=== PATIENT | female | born 1970 ===

== ENCOUNTER 2022-08-31 02:34 | Emergency (ER) | payer OTHER, SELFPAY ==
--- NOTE | ~2022-08-31 | XR_ITS ---
EXAMINATION: XR CHEST CLINICAL INFORMATION: Shortness of breath COMPARISON: None TECHNIQUE: Frontal view of the chest was obtained. FINDINGS: Normal symmetric lung volumes. No parenchymal consolidation. No pleural effusion. No pneumothorax. Cardiomediastinal silhouette and pulmonary vascularity are within normal limits. No acute osseous abnormalities. XR/XR chest 1V IMPRESSION: No acute findings
[2022-08-31 03:01] VITALS: BP 113/64; PULSE 92; RESP 20; TEMP 36.8; O2SAT 98; BMI 28.0
[2022-08-31 04:04] LABS: Influenza A PCR POSITIVE (Negative); Influenza B PCR NEGATIVE (Negative); Resp Syncy Virus RNA Qual PCR NEGATIVE (Negative); SARS COV2 PCR INHOUSE NEGATIVE (Negative)
--- NOTE | 2022-08-31 04:32 | ED_ITS ---
HPI - URI/Sore Throat General Chief Complaint: Upper Respiratory Symptoms Stated Complaint: Flu Like Time Seen by Provider: 08/31/22 03:41 Source: patient and family Mode of arrival: ambulatory Limitations: no limitations History of Present Illness HPI Narrative: 52-year-old female came in with symptoms of runny nose, sneezing, coughing, patient was exposed to a sick contact at work. Patient is coughing with shortness of breath. Patient's symptoms started 5-6 days ago. Related Data Previous Rx's Medication Instructions Recorded albuterol sulfate 90 mcg/actuation 1 inh inhalation QID PRN shortness 08/31/22 aerosol inhaler of breath or wheezing #8.5 grams prednisone 20 mg tablet 20 mg PO BID #10 tabs 08/31/22 Allergies Allergy/AdvReac Type Severity Reaction Status Date / Time No Known Allergies Allergy Verified 08/31/22 04:07 Review of Systems Review of Systems: All other systems are reviewed and are negative Constitutional: Reports as per HPI and Reports no additional constitutional complaints Eyes: Reports as per HPI and Reports no additional eye complaints Reports system reviewed and no additional complaints, except as documented Cardiovascular: Reports as per HPI and Reports no additional cardiovascular complaints Respiratory: Reports as per HPI and Reports no additional respiratory complaints Gastrointestinal: Reports as per HPI and Reports no additional gastrointestinal complaints Genitourinary: Reports no additional female genitourinary complaints Musculoskeletal: Reports no additional musculoskeletal complaints Skin/Breast: Reports system reviewed and no additional complaints, except as d ocu Psychiatric: Reports no additional psychiatric complaints Endocrine: Reports no additional endocrine complaints Hematologic/Lymphatic: Reports no additional hematologic/lymphatic complaints Allergic/Immunologic: Reports no additional allergic/immunologic complaints Reports system reviewed and no additional complaints, except as documented and Reports Abnormal speech present [facility] Social History Social History Advance Directives: No Advance Directives Information Provided: Yes Physical Exam Vital Signs: Vital Signs: Last Vital Signs Temp 98.2 F 08/31/22 03:01 Pulse 92 08/31/22 03:01 Resp 20 08/31/22 03:01 BP 113/64 08/31/22 03:01 Pulse Ox 98 08/31/22 03:01 O2 Del Method 08/31/22 03:01 BMI result Body Mass Index 28.0 Vital signs have been reviewed as appeared to be correct. Blood pressure normal. Heart rate normal. Respiration rate normal. Temperature normal. O xygen saturation normal. Appearance: Alert. Oriented X3. No acute distress. Head: Normal external exam. Normocephalic. Atraumatic. No Starr signs noted. No raccoon eyes noted Eyes: PERRLA. EOMI. Conjunctiva and sclera normal. Eyelids normal. ENT: TM's Normal. Pharynx normal. Uvula midline. Moist mucous membranes. No trismus noted. No drooling noted. No muffled voice noted. Neck: Normal inspection. Neck supple. FROM. No adenopathy. Thyroid Normal. No meningeal signs. No neck mass noted. CVS: Normal heart rate and rhythm. Heart sound normal. No murmurs noted. Pulses normal throughout. Respiratory: No respiratory distress. Painless inspiration. Breath sounds normal. Diffuse expiratory wheezing with prolonged expiration, Chest nontender. No accessory muscle usage noted or decreased air movement noted. Abdomen: Soft and nontender. Bowel sounds normal in all 4 quadrants. No distention noted. No organomegaly noted. No visible injury noted. Back: No CVA tenderness. Full range of motion noted. Skin: Skin warm and dry. Normal skin color. Normal skin turgor. No rashes/lesions/lacerations noted. Extremities: No lower extremity edema. Extremities exhibit normal range of motion. Extremities nontender. Neuro: Oriented X 3. Cranial nerve exam: II-XII are grossly intact No motor deficit. No sensory deficit. Reflexes normal. Course Course Course Narrative: 52-year-old female positive for influenza A, physical exam is also consistent with acute bronchitis. Will start the patient on bronchodilator/prednisone. Symptoms started for 5-6 days patient will not benefit from Tamiflu at this point. Medical Decision Making Differential Diagnosis Differential Diagnoses: The differential diagnosis associated with the presentation includes (RSV/COVID-19 infection/influenza/bronchitis/pneumonia.) Lab Data MDM Lab Attestation statement: I reviewed the patient's lab results. Labs: Lab Results 08/31/22 Range/Units 03:20 Influenza Type A (PCR) POSITIVE A (Negative) Influenza Type B (PCR) NEGATIVE (Negative) RSV RNA Qual (PCR) NEGATIVE (Negative) SARS-CoV-2 RNA (RT-PCR) NEGATIVE (Negative) Independent Interpretation I performed an independent interpretation of an: Plain X-Ray (Chest: No acute intrathoracic pathology.) Radiology Impression Discussion of test interpretation with radiology: I have reviewed the radiologist's reading. Discharge Plan Discharge Clinical Impression: Influenza, Bronchitis Patient Disposition: Home, Self-Care Instructions: Influenza (ED) Prescriptions: New prednisone 20 mg tablet 20 mg PO BID Qty: 10 0RF albuterol sulfate 90 mcg/actuation HFA aerosol inhaler 1 inh inhalation QID PRN (Reason: shortness of breath or wheezing) Qty: 8.5 0RF Referrals: Alma Delia Lindsey MD [Primary Care Provider] - Stand Alone Forms: Work/School Release
== END 2022-08-31 04:54 | disposition home or self-care (01) ==
PROVIDERS: Emergency Provider Emergency Medicine; PCP Internal Medicine
DX: J10.1 Influenza due to other identified influenza virus with other respiratory manifestations (principal); J40 Bronchitis, not specified as acute or chronic; Z20.822 Contact with and (suspected) exposure to COVID-19
CPT/HCPCS: 0241U; 71045; 99282; 99283

== ENCOUNTER 2022-09-08 03:38 | Emergency (ER) | payer SELFPAY ==
--- NOTE | ~2022-09-08 | XR_ITS ---
EXAMINATION: XR CHEST CLINICAL INFORMATION: Shortness breath COMPARISON: 08/31/2012 2 TECHNIQUE: Frontal view of the chest was obtained. FINDINGS: Normal symmetric lung volumes. No parenchymal consolidation. No pleural effusion. No pneumothorax. Cardiomediastinal silhouette and pulmonary vascularity are within normal limits. No acute osseous abnormalities. XR/XR chest 1V IMPRESSION: No acute findings.
[2022-09-08 03:43] VITALS: BP 115/52; PULSE 76; RESP 20; TEMP 36.4; O2SAT 96; BMI 28.0
--- NOTE | 2022-09-08 04:28 | ED.ASTHMA ---
HPI - Asthma General Chief Complaint: Asthma Stated Complaint: asthma Time Seen by Provider: 09/08/22 04:28 Source: patient Mode of arrival: ambulatory Limitations: no limitations History of Present Illness HPI Narrative: Patient with history of asthma just had flu last week treated with Tamiflu comes here for increased shortness of breath cough congestion using inhaler without any relief saturating 96% at room air on arrival patient used to have mild asthma off and on since flu having more episodes with wheezing and cough Related Data Previous Rx's Medication Instructions Recorded albuterol sulfate 90 mcg/actuation 1 inh inhalation QID PRN shortness 08/31/22 aerosol inhaler of breath or wheezing #8.5 grams prednisone 20 mg tablet 20 mg PO BID #10 tabs 08/31/22 albuterol sulfate 90 mcg/actuation 2 puff inhalation Q4-6H PRN 09/08/22 aerosol inhaler (ProAir HFA) shortness of breath or wheezing #8.5 grams azithromycin 250 mg tablet 250 mg PO DAILY 4 days #4 tabs 09/08/22 (Zithromax Z-Edi) benzonatate 200 mg capsule 200 mg PO TID PRN cough #30 caps 09/08/22 prednisone 20 mg tablet 40 mg PO DAILY #10 tabs 09/08/22 Allergies Allergy/AdvReac Type Severity Reaction Status Date / Time No Known Allergies Allergy Verified 09/08/22 03:47 Review of Systems Review of Systems: Yes all other systems are reviewed and are negative [facility] Social History Social History Smoked in Last 30 Days: No Use of substances other than those prescribed or required for medical reasons: No Advance Directives: No Advance Directives Information Provided: Yes Patient : No Physical Exam Vital Signs: Vital Signs: Last Vital Signs Temp 97.5 F 09/08/22 03:43 Pulse 76 09/08/22 03:43 Resp 20 09/08/22 03:43 BP 115/52 L 09/08/22 03:43 Pulse Ox 96 09/08/22 03:43 O2 Del Method 09/08/22 03:43 BMI result Body Mass Index 28.0 Appearance: Alert. Oriented X3. No acute distress. Eyes: No pallor or icterus ENT: Pharynx normal. Oral Mucosa moist Neck: Normal inspection. Neck supple. CVS: Normal heart rate and rhythm. Pulses normal. Respiratory: No respiratory distress. Equal air entry bilateral, bilateral wheezing Abdomen: Soft and nontender. Bowel sounds are present, no mass palpable, no CVA tenderness Skin: Skin warm and dry. Normal skin color. Normal skin turgor. Extremities: No lower extremity edema. No calf tenderness Neuro: Oriented X 3. No motor deficit. No sensory deficit.No cerebellar signs , cranial nerves II-XII intact Const: Other: Appearance: Alert. Oriented X3. No acute distress. Eyes: PERRLA, No Nystagmus ENT: Pharynx normal. Oral Mucosa moist Neck: Normal inspection. Neck supple. CVS: Normal heart rate and rhythm. Pulses normal. Respiratory: No respiratory distress. Equal air entry bilateral, prolonged expiration with rhonchi Abdomen: Soft and nontender. Bowel sounds are present, no mass palpable, no CVA tenderness Skin: Skin warm and dry. Normal skin color. Normal skin turgor. Extremities: No lower extremity edema. No calf tenderness Neuro: Oriented X 3. No motor deficit. Medications Administered Discontinued Medications Generic Name Dose Route Start Last Admin Trade Name Freq PRN Reason Stop Dose Admin Albuterol Sulfate 2.5 mg/ 0 mg 09/08/22 04:38 09/08/22 04:48 Ipratropium [place] 0.5 mg INHALE 09/08/22 04:39 1 each ONCE ONE Administration Dexamethasone 10 mg 09/08/22 04:38 09/08/22 04:50 Dexamethasone 2 Mg Tablet PO 09/08/22 04:39 10 mg ONCE ONE Administration Guaifenesin/Codeine Phosphate 10 ml 09/08/22 04:38 09/08/22 04:50 Guaifen/Codeine Sf 200/20/10ml 10 Ml Liquid PO 09/08/22 04:39 10 ml ONCE ONE Administration Medical Decision Making Medical Decision Making MDM Narrative: Patient with asthma discharge patient home on prednisone, Zithromax, albuterol inhaler Discharge Plan Discharge Clinical Impression: Acute asthmatic bronchitis Patient Disposition: Home, Self-Care Instructions: Acute Bronchitis (ED) Additional Instructions: Continue using her inhaler, cough drops, antibiotic and prednisone Prescriptions: New benzonatate 200 mg capsule 200 mg PO TID PRN (Reason: cough) Qty: 30 0RF prednisone 20 mg tablet 40 mg PO DAILY Qty: 10 0RF albuterol sulfate [ProAir HFA] 90 mcg/actuation HFA aerosol inhaler 2 puff inhalation Q4-6H PRN (Reason: shortness of breath or wheezing) Qty: 8.5 0RF azithromycin [Zithromax Z-Edi] 250 mg tablet 250 mg PO DAILY 4 Days Qty: 4 0RF Rx Instructions: start on day 2 of therapy No Action prednisone 20 mg tablet 20 mg PO BID Qty: 10 0RF albuterol sulfate 90 mcg/actuation HFA aerosol inhaler 1 inh inhalation QID PRN (Reason: shortness of breath or wheezing) Qty: 8.5 0RF
[2022-09-08] MEDS: dexAMETHasone 2 MG TABLET 10 MG PO (04:50)
[2022-09-08] MEDS: guaiFEN/Codeine SF 200/20/10ML 10 ML LIQUID PO (04:50)
--- NOTE | 2022-09-08 05:07 | PC.NURSE ---
this rn medicated pt according to mar. pt partner at bedside at this time
[2022-09-08] MEDS: Albuterol Sulfate 90 MCG 8 GM INHALER 2 PUFF INHALE (05:57)
[2022-09-08] MEDS: Benzonatate 100 MG CAPSULE 200 MG PO (06:00)
[2022-09-08] MEDS: Azithromycin 500 MG TABLET PO (06:01)
[2022-09-08 06:07] VITALS: BP 106/64; PULSE 82; RESP 14; TEMP 36.6; O2SAT 96
--- NOTE | 2022-09-08 06:10 | PC.NURSE ---
pt ambulatory at discharge. pt medicated according to mar. pt partner at bedside at discharge. pt provided with discharge packet at discharge. pt verbalized understanding of discharge plan
== END 2022-09-08 06:12 | disposition home or self-care (01) ==
PROVIDERS: Emergency Provider Internal Medicine
DX: J20.9 Acute bronchitis, unspecified (principal)
CPT/HCPCS: 71045; 99284; J8540

== ENCOUNTER 2023-04-19 15:33 | Emergency (ER) | payer OTHER, SELFPAY ==
--- NOTE | ~2023-04-19 | XR_ITS ---
EXAMINATION: XR CHEST 2 VIEW CLINICAL INFORMATION: Cough and shortness of breath COMPARISON: 09/08/2022 TECHNIQUE: PA and lateral views of the chest obtained. FINDINGS: The lungs are clear. There are no pleural effusions. The cardiomediastinal silhouette is normal. XR/XR chest 2V IMPRESSION: No acute cardiopulmonary disease.
[2023-04-19 16:12] VITALS: BP 109/70; PULSE 76; RESP 17; TEMP 36.5; O2SAT 97; BMI 28.4
--- NOTE | 2023-04-19 16:13 | ED.GENADULT ---
HPI - General Adult General Chief complaint: General Medical Stated complaint: possible chickenpox/ SOB Time Seen by Provider: 04/19/23 19:17 Source: patient, RN notes reviewed and old records reviewed Mode of arrival: ambulatory Limitations: no limitations History of Present Illness HPI narrative: 52-year-old female presents for evaluation of an itchy rash to most of her body. Patient reports that she initially fell on well and had a fever 3 or 4 days ago She then developed a rash that she 1st noticed on her left leg The rash has not spread to most her entire body including neck, both arms and both legs She describes the rash is very itchy She went to her primary doctor yesterday who tested her for chickenpox but was told the report would not be back until Sunday The patient also had some associated shortness of breath She has a history of asthma Patient reports that she was born in [place] and is adopted so does not know her medical history She was told that she had chickenpox as a child Related Data Previous Rx's Medication Instructions Recorded albuterol sulfate 90 mcg/actuation 1 inh inhalation QID PRN shortness 08/31/22 aerosol inhaler of breath or wheezing #8.5 grams prednisone 20 mg tablet 20 mg PO BID #10 tabs 08/31/22 albuterol sulfate 90 mcg/actuation 2 puff inhalation Q4-6H PRN 09/08/22 aerosol inhaler (ProAir HFA) shortness of breath or wheezing #8.5 grams azithromycin 250 mg tablet 250 mg PO DAILY 4 days #4 tabs 09/08/22 (Zithromax Z-Edi) benzonatate 200 mg capsule 200 mg PO TID PRN cough #30 caps 09/08/22 prednisone 20 mg tablet 40 mg PO DAILY #10 tabs 09/08/22 Allergies Allergy/AdvReac Type Severity Reaction Status Date / Time No Known Allergies Allergy Verified 09/08/22 03:47 Review of Systems Constitutional: Constitutional: Denies chills, Denies fever(s) and Reports malaise Cardiovascular: Cardiovascular: Reports dyspnea Respiratory: Respiratory: Denies cough and Reports dyspnea Gastrointestinal: Gastrointestinal: Denies abdominal pain, Denies nausea and Denies vomiting Musculoskeletal: Musculoskeletal: Denies back pain Integumentary/Breasts: Skin/Breast: Reports lesions and Reports rash PMFSH Social History Social History Advance Directives: No Advance Directives Information Provided: No Physical Exam ED Vital Signs: Vital Signs - 24 hr 04/19/23 16:12 04/19/23 18:30 Temperature 97.7 F Pulse Rate 76 67 Respiratory Rate 17 18 Blood Pressure 109/70 Pulse Oximetry 97 Oxygen Delivery Method Room Air BMI result Body Mass Index 28.4 Const General: healthy appearing, comfortable, no acute distress, alert and awake Nutritional Appearance: well nourished Orientation/consciousness: patient oriented x3 HENMT Head: Yes normocephalic and Yes atraumatic Eyes Eyelids: Yes eyelids normal Conjunctivae: conjunctivae normal Sclerae: sclerae normal Corneas: corneas normal Pupils: Equal, round and reactive pupils present EOM: EOMs intact bilaterally Neck Neck: Yes full ROM Resp Other: Patient did receive a breathing treatment prior to my evaluation Effort & Inspection: normal respiratory effort, able to speak in complete sentences, no audible wheezes and not labored Auscultation: clear to auscultation bilaterally Cardio Rate: regular rate Rhythm: regular rhythm GI Inspection: No distended Palpation (GI): Soft to palpation, not firm, nontender, no guarding and not rigid Skin Other: Patient has diffuse erythematous maculopapular rash with occasional vesicles. Some of the lesions are crusted over. There is limited involvement of the trunk Neuro General: patient oriented x3 Cranial nerves: Yes Equal, round and reactive pupils present and Yes Bilaterally intact EOM present Cognition (Neuro): normal cognition Extrem Other: Moving all extremities well without any obvious deformities Course Course Course Narrative: RME: 52yo F w/no sig PMHx c/o NAJERA, SOB, cough x last night, & pruritic rash to b/l UE and LE x2-3 days. Was seen at PCP's office yesterday and had labs and was told she might have Chickenpox. Patient UTD on vaccinations and admits had the chickenpox when she was a child +papular rash to b/l UE and LE, no vesicles or ulcers. ?folliculitis, No palm or sole involvement Viral testing & CXR ordered Full HPI, ROS and PE to be performed by primary ED provider. Medications Administered Discontinued Medications Generic Name Dose Route Start Last Admin Trade Name Freq PRN Reason Stop Dose Admin Albuterol Sulfate 4 puff 08/17/23 18:22 04/19/23 18:30 Albuterol Sulfate 90 Mcg 8 Gm Inhaler INHALE 04/19/23 18:23 4 puff ONCE ONE Administration Medical Decision Making Medical Decision Making [facility] Narrative: Patient has a rash that is consistent with chickenpox/varicella zoster. Given that she was adopted and does not know her medical history is unclear will her vaccination status is or if she was exposed as a child. The patient had a test performed yesterday by her PCP but just does not know the results. She will be treated symptomatically and will follow up with her PCP for results. Her chest x-ray was clear and she test negative for COVID-19 Differential Diagnosis Differential Diagnoses: The differential diagnosis associated with the presentation includes Chickenpox Varicella zoster Viral syndrome Viral exanthem Acute asthma exacerbation Lab Data Labs: Lab Results 04/19/23 04/19/23 Range/Units 16:29 16:29 COVID-19 (BALJINDER) Negative (Negative) COVID-19 Clin Com See Note Influenza Type A (YVES) Negative (Negative) Influenza Type B (YVES) Negative (Negative) Influenza A & B Note See Note Independent Interpretation I performed an independent interpretation of an: Plain X-Ray (Clear lungs) Radiology Impression Discussion of test interpretation with radiology: I have reviewed the radiologist's reading. (No acute cardiopulmonary disease) Discharge Plan Discharge Clinical Impression: Acute maculopapular rash Patient Disposition: Home, Self-Care Instructions: Chickenpox (ED) Additional Instructions: Your rash is consistent with chickenpox You should remain and self isolation at least until Sunday when he can find out the results of her blood test You may use Benadryl as needed for itching and rash Return for new or worsening symptoms Your chest x-ray was clear and you tested negative for COVID-19 Prescriptions: No Action prednisone 20 mg tablet 20 mg PO BID Qty: 10 0RF albuterol sulfate 90 mcg/actuation HFA aerosol inhaler 1 inh inhalation QID PRN (Reason: shortness of breath or wheezing) Qty: 8.5 0RF benzonatate 200 mg capsule 200 mg PO TID PRN (Reason: cough) Qty: 30 0RF prednisone 20 mg tablet 40 mg PO DAILY Qty: 10 0RF albuterol sulfate [ProAir HFA] 90 mcg/actuation HFA aerosol inhaler 2 puff inhalation Q4-6H PRN (Reason: shortness of breath or wheezing) Qty: 8.5 0RF azithromycin [Zithromax Z-Edi] 250 mg tablet 250 mg PO DAILY 4 Days Qty: 4 0RF Rx Instructions: start on day 2 of therapy Stand Alone Forms: Work/School Release
[2023-04-19 17:09] LABS: IDNOW Serial# 9DB6401D; Influenza A Negative (Negative); Influenza B2 Negative (Negative)
[2023-04-19 17:10] LABS: COVID-19 Test Negative (Negative); IDNOW Serial# BCCEAD1C
[2023-04-19 18:30] VITALS: PULSE 67; RESP 18; O2SAT 97
[2023-04-19] MEDS: Albuterol Sulfate 90 MCG 8 GM INHALER 4 PUFF INHALE (18:30)
== END 2023-04-19 19:44 | disposition home or self-care (01) ==
PROVIDERS: Physician Assistant; Emergency Provider Emergency Medicine
DX: R21 Rash and other nonspecific skin eruption (principal); R06.02 Shortness of breath; Z20.822 Contact with and (suspected) exposure to COVID-19
CPT/HCPCS: 71046; 87502; 87635; 94640; 99283; 99284

== ENCOUNTER 2024-10-31 07:14 | Emergency (ER) | payer OTHER, SELFPAY ==
--- NOTE | ~2024-10-31 | XR_ITS ---
EXAMINATION: XR CHEST CLINICAL INFORMATION: cough COMPARISON: April 19, 2023. TECHNIQUE: Frontal view of the chest was obtained. FINDINGS: Pulmonary reticular pattern. No consolidation, pleural effusion or pneumothorax. Cardiomediastinal silhouette size is normal. Mild multilevel thoracic spondylosis. XR/XR chest 1V IMPRESSION: Acute small airway inflammatory disease should be considered in the correct clinical settings. Electronically signed by: Mart Polo MD 10/31/2024 09:10 AM OLIVIA
--- NOTE | 2024-10-31 07:17 | ECG_ITS ---
Test Reason : chest pain Blood Pressure : */* mmHG Vent. Rate : 86 BPM Atrial Rate : 86 BPM P-R Int : 138 ms QRS Dur : 72 ms QT Int : 374 ms P-R-T Axes : 62 71 67 degrees QTcB Int : 447 ms Normal sinus rhythm Normal ECG No previous ECGs available Referred By: Generic ED Physician Electronically Signed By: Andres Head
[2024-10-31 07:24] VITALS: BP 105/64; PULSE 86; RESP 20; TEMP 36.8; O2SAT 97; BMI 26.8
--- NOTE | 2024-10-31 09:23 | ED_ITS ---
HPI - General Adult General Chief complaint: Upper Respiratory Symptoms Stated complaint: chest pain headache Time Seen by Provider: 10/31/24 09:22 Source: patient, RN notes reviewed and old records reviewed Mode of arrival: ambulatory Limitations: no limitations History of Present Illness ED Provider: Alexy VICTORIA narrative: Patient is a 54-year-old female with history of asthma presenting to the emergency department with complaint of headache, congestion, cough, body aches for the past 3 days. States she has been using her inhalers at home with little change in symptoms. Denies any known sick contacts. Reports subjective fevers/chills. Has been using Tylenol and ibuprofen with little improvement in symptoms. complaint: shortness of breath, body aches Onset (ago): day(s) Related Data Previous Rx's ?Medication ?Instructions ?Recorded albuterol sulfate 90 mcg/actuation 1 inh inhalation QID PRN shortness 08/31/22 aerosol inhaler of breath or wheezing #8.5 grams prednisone 20 mg tablet 20 mg PO BID #10 tabs 08/31/22 albuterol sulfate 90 mcg/actuation 2 puff inhalation Q4-6H PRN 09/08/22 aerosol inhaler (ProAir HFA) shortness of breath or wheezing #8.5 grams azithromycin 250 mg tablet 250 mg PO DAILY 4 days #4 tabs 09/08/22 (Zithromax Z-Edi) benzonatate 200 mg capsule 200 mg PO TID PRN cough #30 caps 09/08/22 prednisone 20 mg tablet 40 mg (2 x 20 mg) PO DAILY #10 tabs 09/08/22 amoxicillin 875 mg tablet 875 mg PO BID #14 tabs 10/31/24 prednisone 20 mg tablet 40 mg (2 x 20 mg) PO DAILY #10 tabs 10/31/24 Allergies Allergy/AdvReac Type Severity Reaction Status Date / Time No Known Allergies Allergy Verified 10/31/24 07:27 Review of Systems Review of Systems: As per HPI Yes all other systems are reviewed and are negative Constitutional: Constitutional: Reports as per HPI [facility] Social History Social History Advance Directives: No Advance Directives Information Provided: Yes Do you have a plan to hurt others: No Plan Physical Exam ED Vital Signs: Vital Signs - 24 hr 10/31/24 07:24 10/31/24 09:58 10/31/24 10:03 Temperature 98.3 F Pulse Rate 86 84 Respiratory Rate 20 16 Blood Pressure 105/64 Pulse Oximetry 97 96 Oxygen Delivery Method Room Air Room Air BMI result Body Mass Index 26.8 Vital signs have been reviewed and appear to be correct. Blood pressure normal. Heart rate normal. Respiratory rate normal. Temperature normal. Oxygen saturation normal. Const General: cooperative, healthy appearing and no acute distress Orientation/consciousness: oriented to person, oriented to place, oriented to time and patient oriented x3 Limitations: no limitations HENMT Head: Yes normocephalic and Yes atraumatic Ears: external ears normal, mastoids normal, no periauricular adenopathy and TM abnormal wth effusion purulent on the left and erythematous on the left General nose exam: Normal external nose present Face and sinus: Yes face symmetric Mouth: oropharynx normal and moist mucous membranes Throat: Yes uvula midline Eyes Pupils: Equal, round and reactive pupils present Neck Neck: Yes normal visual inspection and Yes supple Resp Effort & Inspection: normal respiratory effort and able to speak in complete sentences Auscultation: wheezes inspiratory wheezes Cardio Rate: regular rate Rhythm: regular rhythm Heart sounds: S1 normal heart sound present and S2 normal heart sound present GI Palpation (GI): Soft to palpation and nontender Auscultation: normoactive bowel sounds General: Yes no CVA tenderness Back/Spine/Pelvis Back: no CVA tenderness Skin General skin exam: elasticity normal and turgor normal Neuro General: oriented to person, oriented to place, oriented to time, patient oriented x3, moves all extremities, no focal motor deficits and CN's II-XI in tact bilaterally Cranial nerves: Yes Equal, round and reactive pupils present Cognition (Neuro): normal cognition Extrem General: Yes full ROM, Yes no pedal edema and Yes no calf tenderness Psych Mental Status: mental status grossly normal Affect: normal affect Thought process: Normal thought process present Medications Administered Discontinued Medications Generic Name Dose Route Start Last Admin Trade Name Freq PRN Reason Stop Dose Admin Albuterol Sulfate 2.5 mg/ 0 mg 10/31/24 09:54 10/31/24 09:58 Albuterol/Ipratropium 3 ml INHALE 10/31/24 09:55 5 dose ONCE ONE Administration Methylprednisolone Sodium Succinate 60 mg 10/31/24 09:37 10/31/24 09:51 Methylprednisolone Sod Succ 125 Mg/2 Ml Vial IVPUSH 10/31/24 09:38 60 mg ONCE ONE Administration Medical Decision Making Medical Decision Making [facility] Narrative: Patient is a 54-year-old female with history of asthma presenting to the emergency department with complaint of headache, congestion, cough, body aches for the past 3 days. On exam patient is awake, A+Ox3, VS WNL, afebrile, normal neurological exam without focal deficits, physical exam findings as above. Given reported symptoms and physical exam findings, initial differential includes but is not limited to asthma exacerbation, viral illness, covid, flu, rsv, bronchitis, pneumonia. Viral serology positive for influenza B. Physical exam findings consistent with AOM left ear. Will treat with amoxicillin. X-ray notable for small airway inflammation consistent with viral illness. My interpretation is in agreement with the radiologist's interpretation. Feel patient is stable for discharge home. Will send course of prednisone. Follow up with PCP as needed. Patient is outside treatment window for Tamiflu. Return precautions discussed. Patient verbalized understanding of and agreement with plan. Differential Diagnosis Differential Diagnoses: The differential diagnosis associated with the presentation includes As per [facility] Admission/Observation Consideration of admission/observation: Escalation of care including admission/observation considered Patient would have been admitted to the hospital had their work up had any findings where hospital admission was appropriate and their clinical presentation warranted hospital admission. Lab Data [facility] [place] Lab Attestation statement: I reviewed the patient's lab results. As per [facility] Labs: Lab Results 10/31/24 Range/Units 08:18 Influenza Type A (PCR) NEGATIVE (Negative) Influenza Type B (PCR) POSITIVE A (Negative) RSV RNA Qual (PCR) NEGATIVE (Negative) SARS-CoV-2 RNA (RT-PCR) NEGATIVE (Negative) Independent Interpretation I performed an independent interpretation of an: Plain X-Ray Interpretation: X-ray notable for small airway inflammation consistent with viral illness. Radiology Impression Discussion of test interpretation with radiology: I have reviewed the radiologist's reading. Radiologist Impression: FINDINGS: Pulmonary reticular pattern. No consolidation, pleural effusion or pneumothorax. Cardiomediastinal silhouette size is normal. Mild multilevel thoracic spondylosis. XR/XR chest 1V IMPRESSION: Acute small airway inflammatory disease should be considered in the correct clinical settings. External Record Review External record reviewed: Inpatient record, Office record and Outpatient record Prescription Management I considered prescription management with: Antibiotic and Other Discharge Plan Discharge Clinical Impression: Influenza, Otitis media Patient Disposition: Home, Self-Care Instructions: Influenza (DC), Flu Shot (Vaccine) for Adults (ED), Ear Infection (ED) Additional Instructions: You were evaluated in the emergency department today for cough, body aches, and ear pain. Your flu test was positive. You should isolate at home for another 3 days and continue to wear mask or symptomatic after that. Your symptoms should resolve over time with rest and fluids. You are being prescribed a course of steroids to decrease inflammation. You can take 650 mg Tylenol or 600 mg ibuprofen every 6 hours as needed for fever or pain. You were also noted to have an ear infection in your left ear. You are being prescribed an antibiotic to treat the ear infection, complete the full course as prescribed. Please follow-up with your primary care provider for any ongoing symptoms. Return to the emergency department if you develop worsening pain, fever not controlled with Tylenol and ibuprofen, chest pain, dizziness or lightheadedness, or any other concerning symptoms. Prescriptions: New amoxicillin 875 mg tablet 875 mg PO BID Qty: 14 0RF prednisone 20 mg tablet 40 mg PO DAILY Qty: 10 0RF No Action prednisone 20 mg tablet 20 mg PO BID Qty: 10 0RF albuterol sulfate 90 mcg/actuation HFA aerosol inhaler 1 inh inhalation QID PRN (Reason: shortness of breath or wheezing) Qty: 8.5 0RF benzonatate 200 mg capsule 200 mg PO TID PRN (Reason: cough) Qty: 30 0RF prednisone 20 mg tablet 40 mg PO DAILY Qty: 10 0RF albuterol sulfate [ProAir HFA] 90 mcg/actuation HFA aerosol inhaler 2 puff inhalation Q4-6H PRN (Reason: shortness of breath or wheezing) Qty: 8.5 0RF azithromycin [Zithromax Z-Edi] 250 mg tablet 250 mg PO DAILY 4 Days Qty: 4 0RF Rx Instructions: start on day 2 of therapy Stand Alone Forms: Work/School Release Print Language: Armenian
--- OUTSIDE RECORDS SUMMARY | 2024-10-31 09:37 | XMS_ITS | Encounter Summary ---
Author Organization [facility] Address [address] [place] [address] Care Team Providers Care Milling Planer Operator Name Role Phone Alma Delia Lindsey MD Primary Care Provider [phone] Reason for Referral * Consultation (Routine) - Pending Review Specialty Diagnoses / Procedures Referred By Nara romano Referred To Contact Physical Therapy Diagnoses Acute midline low back pain without sciatica Alma Delia Lindsey MD [address] [place] [id number] Phone: tel: fax: Referral ID Status Reason Start Date Expiration Date Visits Requested Visits Authorized [id number] Pending Review Specialty Services Required 10/20/2024 10/20/2025 1 1 Reason for Visit * Reason Comments Back Pain Encounter Details Date Type Department Care Team (Late st Contact Info) Description 10/20/2024 1:15 PM EST Office Visit Adult Medicine [address] [phone] Alma Delia Lindsey MD [address] [place] [phone] Mild intermittent asthma without complication (Primary Dx); Acute midline low back pain without sciatica Social History Tobacco Use Types Packs/Day Years Used Date Smoking Tobacco: Never Smokeless Tobacco: Never Tobacco Cessation:Counseling Given: Not Answered Alcohol Use Standard Drinks/Week Comments No 0 (1 standard drink = 0.6 oz pur e alcohol) Comments No Sex and Gender Information Value Date Recorded Sex Assigned at Not on file Legal Sex Female 6:48 PM EST Gender Identity Not on file Sexual Orientation Not on file documented as of this encounter Last Filed Vital Signs Vital Sign Reading Time Taken Comments Blood Pressure 88/55 10/20/2024 1:09 PM EST Pulse 72 10/20/2024 1:09 PM EST Temperature 36.6 ??C (97.9 ??F) 10/20/2024 1:09 PM ES T Respiratory Rate 13 10/20/2024 1:09 PM EST Oxygen Saturation - - Inhaled Oxygen Concentration - - Weight 60.4 kg (133 lb 1.6 oz) 10/20/2024 1:09 P M EST Height 149.9 cm (4' 11 ) 10/20/2024 1:09 PM EST Body Mass Index 26.88 10/20/2024 1:09 PM EST documented in this encounter Ordered Prescriptions Prescription Sig Dispense Quantity Refills Last Filled Start Date End Date albuterol HFA (PROAIR HFA ; PROVENTIL HFA ; VENTOLIN HFA) 90 mcg/actuation inhaler Inhale 2 Puffs into the lungs every 6 hours as needed for Cough, Wheezing or Shortness of Breath. 8.5 g 1 10/20/2024 predniSONE (DELTASONE) 20 mg tablet Take 3 tabs (60mg) daily for 5 days, then take 2 tabs (40mg) daily for 2 days, then take 1 tab (20mg) daily for 2 days. 21 tablet 10/20/2024 documented in this encounter Progress Notes * Niru Mandel MA - 10/20/2024 1:15 PM EST Depression Screening Will the patient answer the depression risk questions?: Yes Over the last 2 weeks, how often have you been bothered by little interest or pleasure in doing things?: Not at all Over the last 2 weeks, how often have you been bothered by feeling down, depressed, or hopeless?: Not at all Depression Risk: 0 * Alma Delia Lindsey MD - 10/20/2024 1:15 PM EST Chief Complaint: Chief Complaint Patient presents with Back Pain IDENTIFIER: Lily Grubbs is a 54 y.o. old female HPI She states that she has had low back pain dating back a number of years. It has been worse over thelast 2 days with midline low back pain. She has tried muscle relaxers in the past that made her sleepy but did not help her discomfort. She has had x-rays previously showing mild spondylosis. There is no change in urine or bowel habits, there is no radiation of discomfort, no weakness, numbness or p aresthesias in the extremities. She does have asthma and has been continuing as well on albuterol and Flovent inhaler. ROS: General: No malaise, significant weight loss or fever Respiratory: No cough, wheezing or shortness of breath except as noted Cardiovascular: No chest pain, palpitations, no orthopnea Musc as noted Past Medical History: Patient Active Problem List Diagnosis Date Noted Psoriasis 07/30/2018 Herpes simplex labialis 09/05/2016 Atypical ductal hyperplasia of left breast 08/25/2015 Elevated liver enzymes 11/01/2012 Vitamin D deficiency 11/01/2012 Hypothyroidism 03/01/2012 Mild intermittent asthma 03/01/2012 Surgical History: Past Surgical History: Procedure Laterality Date BREAST BIOPSY Left 07/2015 pre cancerous Family History: Family History Adopted: Yes Social History: Social History Tobacco Use Smoking status: Never Smokeless tobacco: Never Substance Use Topics Alcohol use: No Allergies: Fruit extracts Medications: Outpatient Medications Marked as Taking for the 10/20/24 encounter (Office Visit) with Alma Delia Lindsey MD Medication Sig Dispense Refill albuterol HFA (PROAIR HFA ; PROVENTIL HFA ; VENTOLIN HFA) 90 mcg/actuation inhaler Inhale 2 Puffs into the lungs every 6 hours as needed for Cough, Wheezing or Shortness of Breath. 8.5 g 1 calcipotriene (DOVONEX) 0.005 % cream Apply to affected area BID clobetasoL (TEMOVATE) 0.05 % cream Apply topically 2 times daily. fluocinolone (SYNALAR) 0.01 % external solution Apply to affected area BID x 2 weeks fluticasone HFA (FLOVENT HFA) 110 mcg/actuation inhaler Inhale 1 Puff into the lungs 2 times daily. norethindrone (LURDES,DANYELL,SCHUYLER,MICRONOR) 0.35 mg tablet Take 1 Tablet by mouth daily. triamcinolone (KENALOG) 0.1 % ointment APPLY A THIN LAYER TO THE AFFECTED AREA NIGHTLY X2 WEEKS, THEN 2-3X/WEEK NEEDED [DISCONTINUED] albuterol HFA (PROAIR HFA ; PROVENTIL HFA ; VENTOLIN HFA) 90 mcg/actuation inhaler Inhale 2 Puffs into the lungs every 6 hours as needed for Cough, Wheezing or Shortness of Breath. [DISCONTINUED] azithromycin (ZITHROMAX) 250 mg tablet 2 today then 1 daily [DISCONTINUED] predniSONE (DELTASONE) 20 mg tablet Take 3 tablets by mouth on day 1-2, take 2 tablets by mouth on day 3-4, take 1 tablet by mouth on days 5-6. Take with food in the morning. Medication Discontinued/Reordered: Medications Discontinued During This Encounter Medication Reason azithromycin (ZITHROMAX) 250 mg tablet predniSONE (DELTASONE) 20 mg tablet albuterol HFA (PROAIR HFA ; PROVENTIL HFA ; VENTOLIN HFA) 90 mcg/actuation inhaler Reorder Vitals: Blood pressure 88/55, pulse 72, temperature 36.6 ??C (97.9 ??F), temperature source Temporal, resp.rate 13, height 1.499 m (59 ), weight 60.4 kg (133 lb 1.6 oz). Body mass index is 26.88 kg/m??.Planis deferred until next visit Physical Exam: General: patient is in no acute distress. Neck supple without adenopathy, no thyromegaly. Lungs clear with auscultation. Heart: regular S1S2 without murmur, rub or gallop. There is discomfort with palpation across the low back. Extremities without cyanosis, clubbing or edema. Strength, reflexes, sensation in the lower extremities intact. Labs: Previous lumbar spine films show mild spondylosis Impression: 1. Mild intermittent asthma without complication 2. Acute midline low back pain without sciatica Assessment and Plan: She does have asthma which remains controlled on the albuterol and Flovent, refill is given on the albuterol. She has been using nonsteroidal agents to help with the back pain which she will continueto do along with warm soaks, is given a short course of prednisone as well to help with her discomfort and referred for physical therapy. She will return if worsening or not improving. documented in this encounter Plan of Treatment Upcoming Encounters Date Type Department Care Team (Late st Contact Info) Description 11/11/2024 11:30 AM EDT Evaluation Outpatient Rehabilitation [address] [phone] Sam Macedo, PT [address] [place] [address] Scheduled Referrals Name Type Priority Associated Diagnoses Order Schedule Ambulatory referral to Physical Therapy and Athletic Training Outpatient Referral Routine Acute midline low back pain without sciatica 1 Occurrences starting 10/20/2024 until 10/20/2025 documented as of this encounter Visit Diagnoses Diagnosis Mild intermittent asthma without complication- Primary Acute midline low back pain without sciatica documented in this encounter Discontinued Medications Medication Sig Discontinue Reason Start Date End Da te azithromycin (ZITHROMAX) 250 mg tablet 2 today then 1 daily 09/07/2023 10/20/2024 predniSONE (DELTASONE) 20 mg tablet Take 3 tablets by mouth on day 1-2, take 2 tablets by mouth on day 3-4, take 1 tablet by mouth on days 5-6. Take with food in the morning. 05/16/2024 10/20/2024 albuterol HFA (PROAIR HFA ; PROVENTIL HFA ; VENTOLIN HFA) 90 mcg/actuation inhaler Inhale 2 Puffs into the lungs every 6 hours as needed for Cough, Wheezing or Shortness of Breath. Reorder 09/07/2023 10/20/2024 documented as of this encounter Additional Health Concerns Assessment Noted Time PHQ-9 Depression Total Score: 0 10/20/19 1:08 PM EST documented as of this encounter Care Teams Milling Planer Operator Relationship Specialty Start Date End Date Alma Delia Lindsey MD [address] [place] [address] PCP - General Internal Medicine 07/21/20 documented as of this encounter
--- OUTSIDE RECORDS SUMMARY | 2024-10-31 09:37 | XMS_ITS | Clinical Summary ---
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 02/11/20 24 Active clobetasoL (TEMOVATE) 0.05 % cream Apply topically 2 times daily. Active fluticasone HFA (FLOVENT HFA) 110 mcg/actuation inhaler Inhale 1 Puff into the lungs 2 times daily. 09/07/19 24 Active triamcinolone (KENALOG) 0.1 % ointment APPLY A THIN LAYER TO THE AFFECTED AREA NIGHTLY X2 WEEKS, THEN 2-3X/WEEK NEEDED 12/13/19 23 Active calcipotriene (DOVONEX) 0.005 % cream Apply to affected area BID 05/10/20 21 Active fluocinolone (SYNALAR) 0.01 % external solution Apply to affected area BID x 2 weeks 04/05/20 21 Active albuterol HFA (PROAIR HFA ; PROVENTIL HFA ; VENTOLIN HFA) 90 mcg/actuation inhaler Inhale 2 Puffs into the lungs every 6 hours as needed for Cough, Wheezing or Shortness of Breath. 8.5 g 1 10/20/19 25 Active albuterol HFA (PROAIR HFA ; PROVENTIL HFA ; VENTOLIN HFA) 90 mcg/actuation inhaler Inhale 2 Puffs into the lungs every 6 hours as needed for Cough, Wheezing or Shortness of Breath. 09/07/19 24 025 Discontinued(Re order) predniSONE (DELTASONE) 20 mg tablet Take 3 tablets by mouth on day 1-2, take 2 tablets by mouth on day 3-4, take 1 tablet by mouth on days 5-6. Take with food in the morning. 05/16/20 24 025 Discontinued azithromycin (ZITHROMAX) 250 mg tablet 2 today then 1 daily 09/07/19 24 025 Discontinued predniSONE (DELTASONE) 20 mg tablet Take 3 tabs (60mg) daily for 5 days, then take 2 tabs (40mg) daily for 2 days, then take 1 tab (20mg) daily for 2 days. 21 tablet 10/20/19 25 025 Active Problems Problem Noted Date Diagnosed Date Psoriasis 07/30/2018 Herpes simplex labialis 09/05/2016 Atypical ductal hyperplasia of left breast 08/25 Elevated liver enzymes 11/01/2012 Vitamin D deficiency 11/01/2012 Hypothyroidism 03/01/2012 Mild intermittent asthma 03/01/2012 Encounters Date Type Department Care Team Description 10/20/2024 1:15 PM EST Office Visit Adult Medicine [address] [phone] Alma Delia Lindsey MD Mild intermittent asthma without complication (Primary Dx); Acute midline low back pain without sciatica from Last 3 Months Immunizations Name Administration Dates Next Due Influenza trivalent, 0.5mL, preservative free (Fluarix; FluLaval; Fluzone) ages 6mo and older (Afluria) 3 years and older 06/30/2011 Moderna SARS-CoV-2 COVID-19, mRNA, LNP-S, preservative free 03/08/2021,02/06/2021 Tdap Tetanus diptheria acell ular pertussis (Boostrix; Adacel) 7yo and older 10/30/2012 Surgical History Surgery Date Site/Laterality Comments BREAST BIOPSY 07/2015 Left pre cancerous Medical History Medical History Date Comments Psoriasis Mild intermittent asthma, uncomplicated Family History * Patient is adopted Relation Name Status Comments Father adopted Mother adopted Social History Tobacco Use Types Packs/Day Years [...] on file Sexual Orientation Not on file Obstetrics History Last Filed Vital Signs Vital Sign Reading [...] Mass Index 26.88 10/20/2024 1:09 PM EST Plan of Treatment Upcoming Encounters Date Type Department Care Team (Late st Contact Info) Description 11/11/2024 11:30 AM EDT Evaluation Outpatient [address] [phone] Sam Macedo, PT [address] [place] [address] Health Maintenance Due Date Last Done Comments Hepatitis B Vaccines (1 of 3 - 19+ 3-dose series) 1991 Pneumococcal Vaccine: 50+ Years (1 of 2 - PCV) 1991 Pneumococcal Vaccine: Pediatrics (0 to 5 Years) and At-Risk Patients (6 to 64 Years) (1 of 2 - PCV) 1991 Zoster Vaccines (1 of 2) 2022 Colorectal Cancer Screening: Colonoscopy 08/12/2022 Social Influencers of Health Screening 08/12/2022 DTaP,Tdap,and Td Vaccines (2 - Td or Tdap) 10/30/2022 10/30/2012 COVID-19 Vaccine (3 - 2023-2 5 season) 2024 03/08/2021, 02/06/2021 Influenza Vaccine (#1) 2024 06/30/2011 Breast Cancer Screening 07/07/2024 07/07/2022 Cholesterol Screening (Lipid Panel) 07/22/2025 07/22/2020 Depression Screening 10/20/2025 10/20/2024 Cervical Cancer Screening: HPV 05/15/2027 05/15/2022 HIV Screening Completed 09/17/2013 Hepatitis C Screening Completed 10/04/2018 HIB Vaccines Aged Out No longer eligi ble based on patient's age to complete this topic HPV Vaccines Aged Out No longer eligi ble based on patient's age to complete this topic Hepatitis A Vaccines Aged Out No long er eligible based on patient's age to complete this topic IPV Vaccines Aged Out No longer eligi ble based on patient's age to complete this topic MMR Vaccines Aged Out No longer eligi ble based on patient's age to complete this topic Meningococcal ACWY Vaccine Aged Out N o longer eligible based on patient's age to complete this topic Meningococcal B Vacine Aged Out No lo nger eligible based on patient's age to complete this topic RSV Immunization Patients Under 20 months Aged Out No longer eligible b ased on patient's age to complete this topic Varicella Vaccines Aged Out No longer eligible based on patient's age to complete this topic Procedures Procedure Name Priority Date/Time Associated Diagnosis Comments DIAGNOSTIC MAMMOGRAPHY INCLUDING CAD BILATERAL Routine 07/07/2022 3:16 PM EDT Unspecified lump in unspecified breast HPV Routine 05/15/2022 LIPID PANEL Routine 07/22/2020 HEPATITIS C SCREENING Routine 10/04/2018 HIV SCREENING Routine 09/17/2013 from Last 3 Months or Most Recently Relevant to Health Maintenance Results * DIAGNOSTIC MAMMOGRAPHY INCLUDING CAD BILATERAL (07/07/2022 3:16 PM EDT) Anatomical Region Laterality Modality Mammography 05/15/2022 2:43 PM EDT Narrative 07/07/2022 3:27 PM EDT This is a summary report. The complete report is available in the patient's medical record. If you cannot access the medical record, please contact the sending organization for a detailed fax or copy. BILATERAL 2D and 3D DIGITAL DIAGNOSTIC MAMMOGRAM History: Work-up for right breast upper outer palpable abnormality felt by patient and periareolar abnormality felt by referring physician Comparison: Multiple priors dating back to 06/11/2015 Technique: Bilateral full-field digital 2D and 3D mammography was performed using standard CC and MLO projections, right breast CC and MLO 2D and 3D spot compression views, full-field exaggerated CC of the right breast CAD was used to evaluate this mammogram. Findings: Density: ?? The breasts are heterogeneously dense which may obscure small masses-C RIGHT: No suspicious masses, groups of microcalcification or areas of architectural distortion identified. Stable typically benign parenchymal asymmetries LEFT: No suspicious masses, groups of microcalcifications or areas of architectural distortion identified. Stable typically benign parenchymal asymmetries RIGHT BREAST TARGETED ULTRASOUND EVALUATION HISTORY: Work-up for upper outer palpable abnormality/pain and periareolar abnormality felt by referring clinician TECHNIQUE: Ultrasonographic examination is performed using a linear array transducer. ??Targeted right breast ultrasound was performed at 10:00 to 12:00 in the area of clinical concern, periareolar breast was also obtained in the area of clinical concern FINDINGS: At 2:00 periareolar, there is an anechoic thin-walled cyst measuring 0.7 x 0.8 x 0.5 cm and is typically benign. ??An adjacent 0.7 x 0.9 x 0.3 cm anechoic thin- walled cyst is also present. At 10:00 in area of patient's clinical concern, no focal abnormality or sonographic evidence of malignancy Impression: 1. No sonographic or mammographic evidence of malignancy 2. ??Area of clinical concern felt by referring clinician corresponds to typically benign cysts BI-RADS Category 2 benign findings Recommendation: Routine annual screening mammography is recommended Procedure Note Li Hudson MD - 10/09/2023 This is a summary report. The complete report is available in thepatient's medical record. If you cannot access the medical record, pleasecontact the sending organization for a detailed fax or copy. BILATERAL 2D and 3D DIGITAL DIAGNOSTIC MAMMOGRAM History: Work-up for right breast upper outer palpable abnormality felt bypatient and periareolar abnormality felt by referring physician Comparison: Multiple priors dating back to 06/11/2015 Technique: Bilateral full-field digital 2D and 3D mammography wasperformed using standard CC and MLO projections, right breast CC and MLO2D and 3D spot compression views, full-field exaggerated CC of the rightbreast CAD was used to evaluate this mammogram. Findings: Density: The breasts are heterogeneously dense which may obscure smallmasses-C RIGHT: No suspicious masses, groups of microcalcification or areas ofarchitectural distortion identified. Stable typically benign parenchymalasymmetries LEFT: No suspicious masses, groups of microcalcifications or areas ofarchitectural distortion identified. Stable typically benign parenchymalasymmetries RIGHT BREAST TARGETED ULTRASOUND EVALUATION HISTORY: Work-up for upper outer palpable abnormality/pain and periareolarabnormality felt by referring clinician TECHNIQUE: Ultrasonographic examination is performed using a linear arraytransducer. Targeted right breast ultrasound was performed at 10:00 to12:00 in the area of clinical concern, periareolar breast was alsoobtained in the area of clinical concern FINDINGS: At 2:00 periareolar, there is an anechoic thin-walled cyst measuring 0.7 x0.8 x 0.5 cm and is typically benign. An adjacent 0.7 x 0.9 x 0.3 cmanechoic thin-walled cyst is also present. At 10:00 in area of patient's clinical concern, no focal abnormality orsonographic evidence of malignancy Impression: 1. No sonographic or mammographic evidence of malignancy 2. Area of clinical concern felt by referring clinician corresponds totypically benign cysts BI-RADS Category 2 benign findings Recommendation: Routine annual screening mammography is recommended Ryan Hameed DO IMG BI PROCEDURES Final Resul t * Cervical Cancer Screening: HPV (05/15/2022) Pathologist [facility] Cervical Cancer Screening: HPV negative, abstracted Historical Provider HEALTH MAINTENANCE Final Result * Lipid panel (07/22/2020) [facility] LDL/HDL Ratio 3 0 - 4 Triglycerides 81 0 - 150 mg/dL Cholesterol 149 0 - 200 mg/dL HDL 54 >=40 mg/dL LDL Cholesterol 79 0 - 100 mg/dL Blood Venous blood specimen / Unknown Historical Provider LAB BLOOD ORDERABLES Marija l Result * Hepatitis C Screening (10/04/2018) Hepatitis C Screening abstracted Historical Provider HEALTH MAINTENANCE Final Result * HIV Screening (09/17/2013) HIV Screening abstracted Historical Provider HEALTH MAINTENANCE Final Result from Last 3 Months or Most Recently Relevant to Health Maintenance Insurance [employer] Care 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
[2024-10-31 09:42] LABS: Influenza A PCR NEGATIVE (Negative); Influenza B PCR POSITIVE (Negative); Resp Syncy Virus RNA Qual PCR NEGATIVE (Negative); SARS COV2 PCR INHOUSE NEGATIVE (Negative)
[2024-10-31] MEDS: methylPREDNISolone Sod Succ 125 MG/2 ML VIAL 60 MG IVPUSH (09:51)
[2024-10-31 09:58] VITALS: PULSE 84; RESP 16; O2SAT 98
[2024-10-31] MEDS: Albuterol Sulfate 2.5 MG, Albuterol/Iprat 2.5/0.5MG 3 ML 3 ML INHALE (09:58)
[2024-10-31 10:03] VITALS: O2SAT 96
--- NOTE | 2024-10-31 10:44 | PC.NURSE ---
Pt able to continue speaking in full sentences, O2 remaining 96-99% on RA. Pt requesting some PO intake which she is tolerating well. Pt reports she has been coughing for a couple of weeks, is able to get up some green sputum at this time. Pt reports she has been taking cough medication because she is having mid back pain from the coughing. Pt requesting comfortably at this time, awaiting results.
[2024-10-31 11:22] VITALS: BP 100/51; PULSE 99; RESP 18; TEMP 36.6; O2SAT 97
[2024-10-31 11:39] VITALS: BP 100/51; PULSE 99; RESP 18; TEMP 36.6; O2SAT 97
== END 2024-10-31 11:40 | disposition home or self-care (01) ==
PROVIDERS: Emergency Provider Emergency Medicine
DX: J10.1 Influenza due to other identified influenza virus with other respiratory manifestations (principal); R07.89 Other chest pain; H66.93 Otitis media, unspecified, bilateral; R51.9 Headache, unspecified; M79.10 Myalgia, unspecified site; R05.9 Cough, unspecified; Z03.818 Encounter for observation for suspected exposure to other biological agents ruled out
CPT/HCPCS: 0241U; 71045; 93005; 94640; 96374; 99284; 99285; J2919

== ENCOUNTER → 2024-10-31 07:17 | Outpatient (BNV) | payer OTHER, SELFPAY | PROVIDERS: Emergency Provider Emergency Medicine; Visit Provider Internal Medicine Cardiovascular Disease | DX: R07.9 Chest pain, unspecified (principal) | CPT/HCPCS: 93010 ==

== ENCOUNTER → 2024-10-31 07:29 | Outpatient (BNV) | payer OTHER, SELFPAY | PROVIDERS: Emergency Provider Emergency Medicine; Visit Provider Radiology Diagnostic Radiology | DX: R05.9 Cough, unspecified (principal) | CPT/HCPCS: 71045 ==

== ENCOUNTER 2025-02-03 07:35 | Emergency (ER) | payer SELFPAY ==
--- NOTE | ~2025-02-03 | XR_ITS ---
EXAMINATION: XR WRIST, LEFT CLINICAL INFORMATION: pain, injury COMPARISON: None available. TECHNIQUE: PA, lateral, oblique, and scaphoid views of the left wrist. FINDINGS: The bones and soft tissues are normal. No fracture. Alignment is anatomic with normal joint spaces. No erosions or abnormal soft tissue calcifications. XR/XR wrist LT 2V IMPRESSION: Normal left wrist. Electronically signed by: Lionel Macias MD 02/03/2025 09:05 AM EDT
--- NOTE | ~2025-02-03 | XR_ITS ---
EXAMINATION: XR WRIST 1-2 VIEWS RIGHT HISTORY: pain, injury COMPARISON: There are no prior studies available for comparison. FINDINGS: Four views of the right wrist, including a scaphoid view are submitted. Osseous mineralization is normal. There is no fracture or dislocation. The joint spaces are preserved. The soft tissues are unremarkable. XR/XR wrist RT 2V IMPRESSION: Unremarkable examination of the right wrist. Electronically signed by: Lester Wagner MD 02/03/2025 09:06 AM EDT
[2025-02-03 07:41] VITALS: BP 109/69; PULSE 65; RESP 18; TEMP 36.4; O2SAT 97; BMI 26.3
--- NOTE | 2025-02-03 08:07 | ED_ITS ---
HPI - General Adult General Chief complaint: Extremity Problem Stated complaint: Pain both arms Time Seen by Provider: 02/03/25 07:58 Source: patient Mode of arrival: ambulatory Limitations: no limitations History of Present Illness ED Provider: Rachel Camejo PA-C HPI narrative: Patient is a 54 year old assigned female at with no reported medical history presenting to the emergency department today with bilateral wrist pain, back pain, and a headache. Patient states that both of her wrists hurt and she has noticed a lump on her right wrist that has worsened over the last few days. Patient states that she has had back and head pain for months as well. Patient states that she works at a [employer] and does a lot of lifting / moving. Patient denies any dizziness, lightheadedness, abdominal pain, nausea, vomiting, fever, chills, blurry vision, double vision, loss of vision, chest pain, difficulty breathing, shortness of breath, night sweats, pain with urination, increased urinary frequency, increased urinary urgency, blood in her urine or stool, syncope or a near syncopal episode, recent trauma or falls, bowel incontinence, bladder incontinence, or any other complaints at this time. Relieving factors: none Exacerbating factors: movement Associated symptoms: denies other symptoms Treatments prior to arrival: none Related Data Previous Rx's ?Medication ?Instructions ?Recorded albuterol sulfate 90 mcg/actuation 1 inh inhalation QID PRN shortness 08/31/22 aerosol inhaler of breath or wheezing #8.5 grams prednisone 20 mg tablet 20 mg PO BID #10 tabs 08/31/22 albuterol sulfate 90 mcg/actuation 2 puff inhalation Q4-6H PRN 09/08/22 aerosol inhaler (ProAir HFA) shortness of breath or wheezing #8.5 grams azithromycin 250 mg tablet 250 mg PO DAILY 4 days #4 tabs 09/08/22 (Zithromax Z-Edi) benzonatate 200 mg capsule 200 mg PO TID PRN cough #30 caps 09/08/22 prednisone 20 mg tablet 40 mg (2 x 20 mg) PO DAILY #10 tabs 09/08/22 amoxicillin 875 mg tablet 875 mg PO BID #14 tabs 10/31/24 prednisone 20 mg tablet 40 mg (2 x 20 mg) PO DAILY #10 tabs 10/31/24 prednisone 20 mg tablet 20 mg PO DAILY 7 days #7 tabs 02/03/25 Allergies Allergy/AdvReac Type Severity Reaction Status Date / Time Seasonal Allergies Allergy Watery Eye Verified 02/03/25 07:43 Review of Systems Constitutional: Constitutional: Reports no additional constitutional complaints, Denies chills, Denies fever(s), Reports headache(s) and Denies night sweats Eyes: Eyes: Reports no additional eye complaints, Denies blurry vision, Denies change in vision, Denies diplopia, Denies eye discharge, Denies loss of vision and Denies eye pain ENT: Denies dizziness and Reports headache(s) Cardiovascular: Cardiovascular: Reports no additional cardiovascular complaints, Denies chest pain, Denies lightheadedness, Denies Loss of Consciousness and Denies dyspnea Respiratory: Respiratory: Reports no additional respiratory complaints and Denies dyspnea Gastrointestinal: Gastrointestinal: Reports no additional gastrointestinal complaints, Denies abdominal pain, Denies melena, Denies hematochezia, Denies change in bowel habits and Denies change in stool character Genitourinary: Genitourinary: Denies hematuria, Denies urinary frequency, Denies dysuria, Denies urinary incontinence, Denies urinary hesitancy and Denies urinary urgency Musculoskeletal: Musculoskeletal: Reports no additional musculoskeletal complaints, Reports back pain, Denies numbness and Denies tingling Comments: bilateral wrist pain Neurologic: Denies dizziness, Reports headache(s), Denies loss of vision, Denies numbness and Denies tingling Psychiatric: Psychiatric: Reports no additional psychiatric complaints Endocrine: Endocrine: Reports no additional endocrine complaints Hematologic/Lymphatic: Hematologic/Lymphatic: Reports no additional hematologic/lymphatic complaints Allergic/Immunologic: Allergic/Immunologic: Reports no additional allergic/immunologic complaints [facility] Past Medical History Attestation statement: The following information was validated with the patient. Source: old records reviewed and nursing notes reviewed Social History Social History Alcohol intake: never Smoked in Last 30 Days: No Use of substances other than those prescribed or required for medical reasons: No Advance Directives: No Advance Directives Information Provided: Yes Do you have a plan to hurt others: No Plan Patient : No Physical Exam ED Vital Signs: Vital Signs - 24 hr 02/03/25 07:41 02/03/25 08:11 02/03/25 09:34 Temperature 97.5 F 98.3 F Pulse Rate 65 67 67 Respiratory Rate 18 16 16 Blood Pressure 109/69 101/66 101/66 Pulse Oximetry 97 98 98 Oxygen Delivery Method Room Air Room Air Room Air BMI result Body Mass Index 26.3 Const General: cooperative, no acute distress, alert and awake Nutritional Appearance: well nourished Orientation/consciousness: patient oriented x3 HENMT Head: Yes normal to inspection and Yes atraumatic Ears: hearing grossly normal bilaterally and external ears normal General nose exam: Normal external nose present, no nasal discharge noted and no epistaxis Face and sinus: Yes normal facial exam, No abrasion and No laceration Mouth: Normal oral and palatal mucosa present, no drooling and no muffled voice Eyes General: appearance normal, both eyes and all related structures Periorbital: periorbital findings normal Eyelids: Yes eyelids normal Conjunctivae: conjunctivae normal Pupils: Equal, round and reactive pupils present EOM: EOMs intact bilaterally Neck Neck: Yes normal visual inspection, Yes full ROM and Yes no lymphadenopathy Resp Effort & Inspection: normal respiratory effort and able to speak in complete sentences Neuro General: patient oriented x3, moves all extremities and CN's II-XI intact b ilaterally Cranial nerves: Yes Equal, round and reactive pupils present Cognition (Neuro): normal cognition Extrem General: Yes normal to inspection, Yes full ROM and Yes capillary refill normal Psych Appearance: grossly normal Mental Status: mental status grossly normal Affect: normal affect Attitude: cooperative Thought process: Normal thought process present Thought content: Normal thought content present Insight: Good insight present (Psych) Medications Administered Discontinued Medications Generic Name Dose Route Start Last Admin Trade Name Babak PRN Reason Stop Dose Admin Ketorolac Tromethamine 15 mg 02/03/25 09:13 02/03/25 09:27 Ketorolac Tromethamine 15 Mg/Ml Vial IM 02/03/25 09:14 15 mg ONCE ONE Administration Medical Decision Making Medical Decision Making MDM Narrative: Patient is a 54 year old assigned female at with no reported medical history presenting to the emergency department today with bilateral wrist pain, back pain, and a headache. Patient's physical exam was unremarkable. Patient's bilateral wrist x-ray showed no acute process. Patient's clinical presentation is most consistent with carpal tunnel and general arthralgias. I explained my physical exam findings as well as all test results to the patient. I answered all questions asked by the patient. I stressed the importance of the patient marlen ing her medication as directed (either prescribed or as the over the counter packaging recommends). I stressed the importance of the patient following up with her primary care provider and orthopedic team. I stressed the importance of the patient returning to the emergency department immediately if her symptoms were to worsen or if she were to develop any dizziness, shortness of breath, difficulty breathing, chest pain, blurry vision, loss of vision, nausea, vomiting, abdominal pain, fever, chills, back pain, or any other complaints. Patient verbalized agreement and understanding with this treatment plan and discharge. Differential Diagnosis Differential Diagnoses: The differential diagnosis associated with the presentation includes Carpal tunnel Wrist pain Back pain Headache Admission/Observation Consideration of admission/observation: Escalation of care including admission/observation considered Patient would have been admitted to the hospital had her work up had any findings where hospital admission was appropriate and her clinical presentation warranted hospital admission. Independent Interpretation I performed an independent interpretation of an: Plain X-Ray (Bilateral wrist) Interpretation: My interpretation is in agreement with the radiologist's impression of these imaging studies. EXAMINATION: XR WRIST 1-2 VIEWS RIGHT HISTORY: pain, injury COMPARISON: There are no prior studies available for comparison. FINDINGS: Four views of the right wrist, including a scaphoid view are submitted. Osseous mineralization is normal. There is no fracture or dislocation. The joint spaces are preserved. The soft tissues are unremarkable. XR/XR wrist RT 2V IMPRESSION: Unremarkable examination of the right wrist. Electronically signed by: Lester Wagner MD 02/03/2025 09:06 AM EDT Dictated By: Lester Wagner MD Signed By: Electronically signed by Lester Wagner MD 02/03/25 0906 EXAMINATION: XR WRIST, LEFT CLINICAL INFORMATION: pain, injury COMPARISON: None available. TECHNIQUE: PA, lateral, oblique, and scaphoid views of the left wrist. FINDINGS: The bones and soft tissues are normal. No fracture. Alignment is anatomic with normal joint spaces. No erosions or abnormal soft tissue calcifications. XR/XR wrist LT 2V IMPRESSION: Normal left wrist. Electronically signed by: Lionel Macias MD 02/03/2025 09:05 AM EDT RP Dictated By: Lionel Macias MD Signed By: Electronically signed by Lionel Macias MD 02/03/25 0905 Radiology Impression Discussion of test interpretation with radiology: I have reviewed the radiologist's reading. Discharge Plan Discharge Clinical Impression: Carpal tunnel syndrome, Arthralgia Patient Disposition: Home, Self-Care Instructions: Carpal Tunnel Syndrome (DC), Arthralgia (ED) Additional Instructions: Follow up with your primary care provider and an orthopedic provider. Return to the emergency department immediately if your symptoms worsen or if you develop any numbness, tingling, dizziness, shortness of breath, difficulty breathing, chest pain, blurry vision, loss of vision, nausea, vomiting, abdominal pain, fever, chills, back pain, or any other complaints. Please see the information below about our Patient Portal. If you are not yet enrolled in the [facility] Patient Portal, you will receive an enrollment email invitation following your visit to any [facility] setting. You may also self-enroll in the Patient Portal by visiting our website: [email or web address] The following information is required to access the Patient Portal: - Your [facility] Medical Record Number - Your personal home email address (must match what is in your electronic medical record, Registration staff can assist with this) - Name - Date of Capabilities of the Patient Portal: - Message some providers - View upcoming appointments - Access your health summary, medical history, and visit history - View current conditions and allergies - View procedure and lab results - View your medications, including guidelines, side effects, and precautions - Complete pre-appointment questionnaires requested by your provider - Ready summary reports of your office visits and procedures To access the Patient Portal Mobile Mick, follow these directions: - Search [employer] in the Mick Store or [employer] Store - Download the Mick - Search for [facility] - Enter your login/password Prescriptions: New prednisone 20 mg tablet 20 mg PO DAILY 7 Days Qty: 7 0RF No Action prednisone 20 mg tablet 20 mg PO BID Qty: 10 0RF albuterol sulfate 90 mcg/actuation HFA aerosol inhaler 1 inh inhalation QID PRN (Reason: shortness of breath or wheezing) Qty: 8.5 0RF benzonatate 200 mg capsule 200 mg PO TID PRN (Reason: cough) Qty: 30 0RF prednisone 20 mg tablet 40 mg PO DAILY Qty: 10 0RF albuterol sulfate [ProAir HFA] 90 mcg/actuation HFA aerosol inhaler 2 puff inhalation Q4-6H PRN (Reason: shortness of breath or wheezing) Qty: 8.5 0RF azithromycin [Zithromax Z-Edi] 250 mg tablet 250 mg PO DAILY 4 Days Qty: 4 0RF Rx Instructions: start on day 2 of therapy amoxicillin 875 mg tablet 875 mg PO BID Qty: 14 0RF prednisone 20 mg tablet 40 mg PO DAILY Qty: 10 0RF Referrals: [facility] [Provider Group] (Call to establish and follow up with an orthopedic provider. ) Group,[facility] [Primary Care Provider] - Stand Alone Forms: Work/School Release Interventions: ED Discharge Assessment Last Done: 02/03/25 09:34 Discharge Date/Time: 02/03/25 09:35 Print Language: Albanian
[2025-02-03 08:11] VITALS: BP 101/66; PULSE 67; RESP 16; O2SAT 98
[2025-02-03] MEDS: Ketorolac Tromethamine 15 MG/ML VIAL IM (09:27)
[2025-02-03 09:34] VITALS: BP 101/66; PULSE 67; RESP 16; TEMP 36.8; O2SAT 98
== END 2025-02-03 09:35 | disposition home or self-care (01) ==
PROVIDERS: Emergency Provider Emergency Medicine Emergency Medical Services
DX: G56.03 Carpal tunnel syndrome, bilateral upper limbs (principal); M25.532 Pain in left wrist; M25.531 Pain in right wrist
CPT/HCPCS: 73100; 96372; 99284; J1885

== ENCOUNTER → 2025-02-03 08:07 | Outpatient (BNV) | payer SELFPAY | PROVIDERS: Emergency Provider Emergency Medicine Emergency Medical Services; Visit Provider Radiology Diagnostic Radiology | DX: M25.531 Pain in right wrist (principal); M25.532 Pain in left wrist | CPT/HCPCS: 73100 ==

== ENCOUNTER 2025-05-08 23:53 | Emergency (ER) | payer SELFPAY ==
--- NOTE | 2025-05-08 23:56 | ED.DENTAL ---
HPI - Dental/Oral General Chief complaint: Dental/Oral Stated complaint: dental pain Time Seen by Provider: 05/08/25 23:55 Source: patient and old records reviewed Mode of arrival: ambulatory Limitations: no limitations History of Present Illness ED Provider: FARHAD VICTORIA Narrative: 54 yo female with PMH of asthma who ate something 3 days ago and thinks she chipped a known bad tooth. She states that since then severe pain and rednes to that area. Able to drink and swallow. She has no insurance to see dentist. NO neck pain. MD Complaint: tooth pain and tooth injury Location: Tooth # (31) Onset (ago): day(s) (3) Duration: constant Severity: moderate Relieving factors: nothing Exacerbating factors: chewing, cold, heat, drinking fluids and swallowing Context: history of dental caries, trauma (mechanism) and poor dental care Associated symptoms: gum swelling Treatment prior to arrival: oral analgesic Related Data Previous Rx's ?Medication ?Instructions ?Recorded albuterol sulfate 90 mcg/actuation 1 inh inhalation QID PRN shortness 08/31/22 aerosol inhaler of breath or wheezing #8.5 grams prednisone 20 mg tablet 20 mg PO BID #10 tabs 08/31/22 albuterol sulfate 90 mcg/actuation 2 puff inhalation Q4-6H PRN 09/08/22 aerosol inhaler (ProAir HFA) shortness of breath or wheezing #8.5 grams azithromycin 250 mg tablet 250 mg PO DAILY 4 days #4 tabs 09/08/22 (Zithromax Z-Edi) benzonatate 200 mg capsule 200 mg PO TID PRN cough #30 caps 09/08/22 prednisone 20 mg tablet 40 mg (2 x 20 mg) PO DAILY #10 tabs 09/08/22 amoxicillin 875 mg tablet 875 mg PO BID #14 tabs 10/31/24 prednisone 20 mg tablet 40 mg (2 x 20 mg) PO DAILY #10 tabs 10/31/24 prednisone 20 mg tablet 20 mg PO DAILY 7 days #7 tabs 02/03/25 amoxicillin 875 mg-potassium 1 tab PO BID #14 tabs 05/08/25 clavulanate 125 mg tablet hydrocodone 5 mg-acetaminophen 325 1 tab PO Q6H PRN pain #10 tabs 05/08/25 mg tablet ibuprofen 600 mg tablet 600 mg PO Q6H PRN pain #30 tabs 05/08/25 Allergies Allergy/AdvReac Type Severity Reaction Status Date / Time Seasonal Allergies Allergy Watery Eye Verified 05/08/25 23:57 Review of Systems Review of Systems: Constitutional : No Fever, No Chills ENT/Mouth : No swallowing difficulty, no change in voice, positive dental pain, positive jaw pain, no facial swelling Eyes: No Eye Pain, No Swelling Cardiovascular : No Chest Pain, No SOB Respiratory : No Cough, No Sputum Gastrointestinal : No Nausea, No Vomiting, No Diarrhea Genitourinary : No Dysuria Musculoskeletal : No Myalgias Skin : No rash Neuro : No Weakness, No Numbness, No Headache PMFSH Past Medical History Attestation statement: The following information was validated with the patient. Source: old records reviewed Medical History Asthma Social History Social History (Updated 05/09/25 @ 00:03 by Adalgisa Gann DO) Alcohol intake: never Patient Tobacco Use Status: Never used Tobacco Do you have a plan to hurt others: No Plan Physical Exam Vital Signs: Vital Signs: Last Vital Signs Temp 97.7 F 05/08/25 23:57 Pulse 74 05/08/25 23:57 Resp 16 05/08/25 23:57 BP 144/79 H 05/08/25 23:57 Pulse Ox 96 05/08/25 23:57 O2 Del Method Room Air 05/08/25 23:57 BMI result Body Mass Index 30.3 Appearance: Alert. Oriented X3. No acute distress. Eyes: Pupils equal, round and reactive to light. ENT: Pharynx normal. no trismus no sublingual submandibular R lower jaw tooth last molar exposed pulp with gum inflammation but no tori abscess Neck: Normal inspection. CVS:Pulses normal. Respiratory: No respiratory distress. Abdomen: atraumatic Skin: Skin warm and dry. Extremities: moves all ext no issues Neuro: Oriented X 3. No motor deficit. No sensory deficit. Medications Administered Discontinued Medications Generic Name Dose Route Start Last Admin Trade Name Freq PRN Reason Stop Dose Admin Amoxicillin/Clavulanate Potassium 875 mg 05/08/25 23:55 05/09/25 00:03 Amoxicillin/Potassium Clav 875 Mg Tablet PO 05/08/25 23:56 875 mg ONCE ONE Administration Ondansetron HCl 4 mg 05/08/25 23:55 05/09/25 00:03 Ondansetron Odt 4 Mg Tab.Ritodis TRANSLINGU 05/08/25 23:56 4 mg ONCE ONE Administration Oxycodone HCl 5 mg 05/08/25 23:55 05/09/25 00:03 Oxycodone Hcl Immed Release 5 Mg Tablet PO 05/08/25 23:56 5 mg ONCE ONE Administration Medical Decision Making Medical Decision Making MDM Narrative: 54 yo female with PMH of asthma here with dental pain and gum inflammation but no tori abscess or trimsus with no signs of deeper space infection the root appears exposed will dose with pain meds and abx refer to to dentist Differential Diagnosis Differential Diagnoses: The differential diagnosis associated with the presentation includes toothache, abscess, dental trauma Admission/Observation Consideration of admission/observation: Escalation of care including admission/observation considered can be managed as outpatient no deeper space infection Independent Historian Clinical information obtained from an independent historian. History obtained from or confirmed by: Spouse Prescription Management I considered prescription management with: Pain Medication and Antibiotic Discharge Plan Discharge Clinical Impression: Tooth ache Patient Disposition: Home, Self-Care Instructions: Toothache (ED) Additional Instructions: alternate medications for pain take all antibiotics this will need to be removed by a dentist return for worsening swelling, fevers, pain or any other concerns On amoxicillin-clavulanate, softer bowel movements are to be expected. Call your provider if you move your bowels more than 4 times a day, your bowel movements are almost all liquid, or you get a rash.? Prescriptions: New hydrocodone-acetaminophen 5-325 mg tablet 1 tab PO Q6H PRN (Reason: pain) Qty: 10 0RF Rx Instructions: partial fill okay; Partial Fill upon patient request. ibuprofen 600 mg tablet 600 mg PO Q6H PRN (Reason: pain) Qty: 30 0RF amoxicillin-pot clavulanate 875-125 mg tablet 1 tab PO BID Qty: 14 0RF No Action prednisone 20 mg tablet 20 mg PO BID Qty: 10 0RF albuterol sulfate 90 mcg/actuation HFA aerosol inhaler 1 inh inhalation QID PRN (Reason: shortness of breath or wheezing) Qty: 8.5 0RF benzonatate 200 mg capsule 200 mg PO TID PRN (Reason: cough) Qty: 30 0RF prednisone 20 mg tablet 40 mg PO DAILY Qty: 10 0RF albuterol sulfate [ProAir HFA] 90 mcg/actuation HFA aerosol inhaler 2 puff inhalation Q4-6H PRN (Reason: shortness of breath or wheezing) Qty: 8.5 0RF azithromycin [Zithromax Z-Edi] 250 mg tablet 250 mg PO DAILY 4 Days Qty: 4 0RF Rx Instructions: start on day 2 of therapy amoxicillin 875 mg tablet 875 mg PO BID Qty: 14 0RF prednisone 20 mg tablet 40 mg PO DAILY Qty: 10 0RF prednisone 20 mg tablet 20 mg PO DAILY 7 Days Qty: 7 0RF Stand Alone Forms: Work/School Release Print Language: Turkmen
[2025-05-08 23:57] VITALS: BP 144/79; PULSE 74; RESP 16; TEMP 36.5; O2SAT 96; BMI 30.3
[2025-05-09] MEDS: oxyCODONE HCl Immed Release 5 MG TABLET PO (00:03)
[2025-05-09 00:10] VITALS: BP 144/79; PULSE 74; RESP 16; TEMP 36.5; O2SAT 96
--- OUTSIDE RECORDS SUMMARY | 2025-05-09 00:21 | XMS_ITS | Clinical Summary ---
Author Organization [facility] [address] [place] [address] [place] [phone] Phone Care Team Providers Care Borderer Name Role Phone Alma Delia Lindsey MD Primary Care Provider [phone] Allergies Active Allergy Reactions Criticality Noted Date Comments Fruit Extracts 11/19/2012 Fruit (generic) Assorted fruits/veggies Medications clobetasoL (TEMOVATE) 0.05 % cream Apply topically 2 times daily. Active fluticasone HFA (FLOVENT HFA) 110 mcg/actuation inhaler Inhale 1 Puff into the lungs 2 times daily. 4 Active triamcinolone (KENALOG) 0.1 % ointment APPLY A THIN LAYER TO THE AFFECTED AREA NIGHTLY X2 WEEKS, THEN 2-3X/WEEK NEEDED 3 Active calcipotriene (DOVONEX) 0.005 % cream Apply to affected area BID 1 Active fluocinolone (SYNALAR) 0.01 % external solution Apply to affected area BID x 2 weeks 1 Active albuterol HFA (PROAIR HFA ; PROVENTIL HFA ; VENTOLIN HFA) 90 mcg/actuation inhaler Inhale 2 Puffs into the lungs every 6 hours as needed for Cough, Wheezing or Shortness of Breath. 8.5 g 1 5 Active naproxen (EC NAPROSYN) 500 mg EC tablet Take 1 tablet twice a day for 14 days. Take with food 28 tablet 5 Active cyclobenzaprine (FLEXERIL) 10 mg tablet Take 1 tablet (10 mg total) by mouth 3 (three) times a day if needed for muscle spasms for up to 7 days. 21 each 5 Active norethindrone (DANYELL CHATMAN H EATHER,MICRONOR ) 0.35 mg tablet TAKE 1 TABLET BY MOUTH EVERY DAY 84 tablet 1 5 Active Active Problems Problem Noted Date Diagnosed Date Psoriasis 07/30/2018 Herpes simplex labialis 09/05/2016 Atypical ductal hyperplasia of left breast 08/25 Elevated liver enzymes 11/01/2012 Vitamin D deficiency 11/01/2012 Hypothyroidism 03/01/2012 Mild intermittent asthma 03/01/2012 Immunizations Name Administration Dates Next Due Influenza [...] Sign Reading Time Taken Comments Blood Pressure 100/62 01/30/2025 2:53 PM EDT Pulse 73 01/30/2025 2:53 PM EDT Temperature 36.6 C (97.9 F) 10/20/2024 1:09 PM EST Respiratory Rate 13 10/20/2024 1:09 PM EST Oxygen Saturation 97% 01/30/2025 2:53 PM EDT Inhaled Oxygen Concentration - - Weight 60.4 kg (133 lb 1.6 oz) 10/20/2024 1:09 P M EST Height 149.9 cm (4' 11 ) 10/20/2024 1:09 PM EST Body Mass Index 26.88 10/20/2024 1:09 PM EST Plan of Treatment Health Maintenance Due Date Last Done Comments Hepatitis B Vaccines (1 of 3 - 19+ 3-dose series) 1991 Pneumococcal Vaccine: 50+ Years (1 of 2 - PCV) 1991 Zoster Vaccines (1 of 2) 2022 Colorectal Cancer Screening: Colonoscopy 08/12/2022 Social Influencers of Health Screening 08/12/2022 DTaP,Tdap,and Td Vaccines (2 - Td or Tdap) 10/30/2022 10/30/2012 Breast Cancer Screening 07/07/2024 07/07/2022 COVID-19 Vaccine (3 - 2024-2 6 season) 2025 03/08/2021, 02/06/2021 Influenza Vaccine (#1) 2025 06/30/2011 Cholesterol Screening (Lipid Panel) 07/22/2025 07/22/2020 Cervical Cancer Screening: HPV 05/15/2027 05/15/2022 HIV Screening Completed 09/17/2013 Hepatitis C Screening Completed 10/04/2018 Depression Screening Completed 10/20/2024 HIB Vaccines Aged Out No longer eligi [...] age to complete this topic Meningococcal B Vaccine Aged Out No l onger eligible based on patient's age to complete [...] is performed using a linear array transducer. Targeted right breast ultrasound was performed at 10:00 to 12:00 in the area of clinical concern, periareolar breast was also obtained in the area of clinical concern FINDINGS: At 2:00 periareolar, there is an anechoic thin-walled cyst measuring 0.7 x 0.8 x 0.5 cm and is typically benign. An adjacent 0.7 x 0.9 x 0.3 cm anechoic thin-walled cyst is also present. At 10:00 [...] * Cervical Cancer Screening: HPV (05/15/2022) Pathologist [facility] Cervical Cancer Screening: HPV negative, abstracted Historical Provider HEALTH MAINTENANCE Final Result * Lipid panel (07/22/2020) [facility] LDL/HDL Ratio 3 0 - 4 Triglycerides 81 0 - 150 mg/dL Cholesterol 149 0 - 200 mg/dL HDL 54 >=40 mg/dL LDL Cholesterol 79 0 - 100 mg/dL Blood Venous blood specimen / Unknown Result [facility] Historical Provider LAB BLOOD ORDERABLES Marija l Result * Hepatitis C Screening (10/04/2018) Pathologist [facility] Hepatitis C Screening abstracted Historical Provider HEALTH MAINTENANCE Final Result * HIV Screening (09/17/2013) [facility] HIV Screening abstracted Result [facility] Historical Provider HEALTH MAINTENANCE Final Result from Last 3 Months or Most Recently Relevant to Health Maintenance Care Teams Borderer Relationship Specialty Start Date End Date Alma Delia Lindsey MD [address] [place] [phone] PCP - General Internal Medicine 07/21/20
--- OUTSIDE RECORDS SUMMARY | 2025-05-09 00:21 | XMS_ITS ---
Author Name [facility] Organization Unknown Care Team Organization Name Specialty Phone Email Start Date End Da te [facility] Alma Delia Lindsey Primary Care 07/11/2022 4
== END 2025-05-09 00:22 | disposition home or self-care (01) ==
LOC: HO.ED 05-09 00:19
PROVIDERS: Emergency Provider Emergency Medicine
DX: K08.89 Other specified disorders of teeth and supporting structures (principal)
CPT/HCPCS: 99283

== ENCOUNTER 2025-07-07 10:06 | Emergency (ER) | payer OTHER, SELFPAY ==
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
[2025-07-07 10:13] VITALS: BP 115/70; PULSE 77; RESP 20; TEMP 36.3; O2SAT 97; BMI 26.9
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
[2025-07-07] MEDS: Lidocaine 4 % Patch ADH..PATCH 1 PATCH TRANSDERMA (10:57)
--- NOTE | 2025-07-07 11:03 | PC.NURSE ---
Patient states she is uncomfortable laying on her back. Encouraged to stay laying on her back, however patient wants to lay on her side. In CT scan at this time. Medicated per the MAR.
--- OUTSIDE RECORDS SUMMARY | 2025-07-07 12:12 | XMS_ITS | Clinical Summary ---
Author Organization [facility] [address] [place] [address] [place] [phone] Phone Care Team Providers Care Flatwork Presser Name Role Phone Alma Delia Lindsey MD Primary Care Provider [phone] Allergies Active Allergy Reactions Criticality Noted Date [...] each 5 Active norethindrone (DANYELL CHATMAN H EATHER,STACIEOR ) 0.35 mg tablet TAKE 1 TABLET BY MOUTH EVERY DAY 84 tablet 1 5 Active Active Problems Problem Noted Date Diagnosed Date Psoriasis 07/30/2018 Herpes simplex labialis 09/05/2016 Atypical ductal hyperplasia of left breast 08/25 Elevated liver enzymes 11/01/2012 Vitamin D deficiency 11/01/2012 Hypothyroidism 03/01/2012 Mild intermittent asthma 03/01/2012 Immunizations Immunization Administration Dates Next Due Influenza trivalent, 0.5mL, [...] Health Maintenance Due Date Last Done Comments Colorectal Cancer Screening: Colonoscopy 1972 Hepatitis B Vaccines (1 of 3 - 19+ 3-dose series) 1991 Pneumococcal Vaccine: 50+ Years (1 of 2 - PCV) 1991 RSV Immunization Adult Patients (1 - Risk 50-74 years 1-dose series) 2022 Zoster Vaccines (1 of 2) 2022 Social Influencers of Health Screening 08/12/2022 DTaP,Tdap,and [...] Recommendation: Routine annual screening mammography is recommended Result [facility] Ryan Hameed DO IMG BI PROCEDURES Final Resul t * Cervical Cancer Screening: HPV (05/15/2022) Pathologist [facility] Cervical Cancer Screening: HPV negative, abstracted Historical Provider HEALTH MAINTENANCE Final Result * Lipid panel (07/22/2020) [facility] LDL/HDL Ratio 3 0 - 4 Triglycerides 81 0 - 150 mg/dL Cholesterol 149 0 - 200 mg/dL HDL 54 >=40 mg/dL LDL Cholesterol 79 0 - 100 mg/dL Blood Venous blood specimen / Unknown Result [facility] Historical Provider LAB BLOOD ORDERABLES Marija l Result * Hepatitis C Screening (10/04/2018) [facility] Hepatitis C Screening abstracted Historical Provider HEALTH MAINTENANCE Final Result * HIV Screening (09/17/2013) [facility] HIV Screening abstracted Result [facility] Historical Provider HEALTH MAINTENANCE Final Result from Last 3 Months or Most Recently Relevant to Health Maintenance Care Teams Flatwork Presser Relationship Specialty Start Date End Date Alma Delia Lindsey MD [address] [place] [phone] PCP - General Internal Medicine 07/21/20
[2025-07-07 12:17] VITALS: BP 107/64; PULSE 70; RESP 18; TEMP 36.7; O2SAT 97
[2025-07-07 14:06] VITALS: BP 107/64; PULSE 70; RESP 18; TEMP 36.7; O2SAT 97
== END 2025-07-07 14:09 | disposition home or self-care (01) ==
PROVIDERS: Emergency Provider Emergency Medicine
DX: Z04.1 Encounter for examination and observation following transport accident (principal); M79.18 Myalgia, other site; M54.2 Cervicalgia
CPT/HCPCS: 70450; 72100; 72125; 96372; 99283; 99284; J1885

== ENCOUNTER → 2025-07-07 10:21 | Outpatient (BNV) | payer SELFPAY | PROVIDERS: Emergency Provider Emergency Medicine; Visit Provider Radiology Diagnostic Radiology | DX: M47.812 Spondylosis without myelopathy or radiculopathy, cervical region (principal); J01.00 Acute maxillary sinusitis, unspecified; V89.2XXA Person injured in unspecified motor-vehicle accident, traffic, initial encounter; Z04.3 Encounter for examination and observation following other accident; J32.9 Chronic sinusitis, unspecified; M47.816 Spondylosis without myelopathy or radiculopathy, lumbar region; M41.86 Other forms of scoliosis, lumbar region | CPT/HCPCS: 70450; 72100; 72125 ==